=== PATIENT | female | born 1950 | race Caucasian/White ===

== ENCOUNTER 2017-01-21 00:07 | Emergency (ER) | payer OTHER ==
--- NOTE | 2017-01-21 02:14 | ED CLINICAL REPORT ---
Clinical Report - Physicians/Mid Levels [facility] [address] [place] [address] 01/21/2017 0:08 Patient: LEONEL CHRISTIAN Time Seen: 00:24; initial patient contact. Arrived- By private vehicle. Historian- patient. HISTORY OF PRESENT ILLNESS Chief Complaint: BACK PAIN. Onset- about 1 1/2 days ago and it is still present. It was gradual in onset and has been intermittent. Modifying factors- worsened by sitting, standing, walking, lying down, bending over, coughing or taking deep breaths. Not relieved by anything. It is described as being moderate in degree and in the area of the mid thoracic spine and lower thoracic spine. The quality is noted to be aching. No radiation. No bladder dysfunction, bowel dysfunction, sensory loss or motor loss. Patient denies an injury but injury to the head or chest. Similar symptoms previously: Many times. Recent medical care: Not recently seen/assessed. REVIEW OF SYSTEMS No abdominal pain, nausea, difficulty with urination, neck pain or numbness. No weakness. She has had diarrhea and back pain. No difficulty walking. All systems otherwise negative, except as recorded above. PAST HISTORY Osteoporosis. Spinal Fracture. Lumbar Strain. Espinoza's Palsy. ADDITIONAL SURGERIES: . Ear disorder screening. Knee Surgery. Medications: Cclcium Supplement. Vitamin D Oral (Capsule 1000 unit) 1 capsule, daily. Omeprazole Oral. TiZANidine HCl Oral. Ibuprofen Oral. Allergies: Hydrocodone. Definite Moderate(anxiety) ("makes her feel as though bugs are crawling on me"). SOCIAL HISTORY Never smoker. No alcohol use or drug use. ADDITIONAL NOTES The nursing notes have been reviewed. PHYSICAL EXAM Vital Signs: 01/21/2017 00:17 BP: 116/62. HR: 100. RR: 16. O2 saturation: 97%. Temp: 97.6 F. Pain level now: 8/10. Have been reviewed as normal. Appearance: Alert. No acute distress. CVS: Normal heart rate and rhythm. Heart sounds normal. Respiratory: No respiratory distress. Breath sounds normal. Chest nontender. Back: Mild soft tissue tenderness in the right mid and lower and left mid and lower thoracic area. Moderate muscle spasm present in the right mid and lower and left mid and lower thoracic area. No vertebral point tenderness. Neuro: Oriented X 3. Mood/affect normal. No motor deficit. PROGRESS AND PROCEDURES Course of Care: Diazepam 10 mg IM given. Physical exam findings are improved. Symptoms better. Disposition: Discharged home in good and improved condition. Condition: good. CLINICAL IMPRESSION Muscle strain of the mid back. INSTRUCTIONS Do not work today. Your Current Medications: STOP TAKING THE FOLLOWING MEDICATIONS: TiZANidine HCl Oral. CONTINUE TAKING THE FOLLOWING MEDICATIONS: Cclcium Supplement*. Ibuprofen Oral. Omeprazole Oral. Vitamin D Oral : Capsule 1000 unit, 1 capsule daily. Prescription Medications: Baclofen 10 mg: take 1 orally every 8 hours. Dispense thirty (30). No refills. Follow-up: Follow up with your doctor in about four days. Call for an appointment. Screening today revealed the patient's blood pressure to be in the normal range. (Electronically signed by Camacho Melgar Dr. 01/21/2017 2:15)
--- NOTE | 2017-01-21 02:14 | ED NURSING NOTES ---
Clinical Report - Nurses [facility] [address] [place] [address] 01/21/2017 0:08 [id number] Triage time 00:10 Jan 21 2017. Acuity: LEVEL 3. Chief Complaint: BACK PAIN. Alert. SHAHRAM COMA SCORE: [place] Coma Scale: 15- eyes open spontaneously (4); best verbal response- oriented x 4 (5); best motor response- obeys commands (6). Shahram Coma Scale: 15- eyes open spontaneously (4); best verbal response- oriented x 4 (5); best motor response- obeys commands (6). --00:41 Néstor Harris R.N. 00:17 01/21/17. BP: 116/62. HR: 100. RR: 16. O2 saturation: 97% on room air. Temp: 97.6 F (oral). Pain level now: 05/05. --00:41 Néstor Harris R.N. Weight: 68 kg stated. Height/Length: 67.5 inches Per Patient. BMI: 23.1. --00:18 Néstor Harris R.N. Medications Ibuprofen Oral. --00:25 Néstor Harris R.N. TiZANidine HCl Oral. --00:25 Néstor Harris R.N. Omeprazole Oral. --00:26 Néstor Harris R.N. Vitamin D Oral (Capsule 1000 unit) 1 capsule, daily. --00:30 Néstor Harris R.N. Cclcium Supplement. --00:30 Néstor Harris R.N. Allergies Hydrocodone. Definite Moderate(anxiety) ("makes her feel as though bugs are crawling on me") --00:24 Néstor Harris R.N. Medication/allergy information source: the patient. --00:41 Néstor Harris R.N. History Arrived by private vehicle. Historian: patient. Accompanied by family and daughter. Primary physician (Ambar Anaya,[place], [place]). ( Bilat Mid-back pain starting yesterday. Went to her clinic yesterday and was prescribed a muscle relaxer and Ibuprofen(neither of which has helped her pain).). This started yesterday. Onset. (about 40 hours ago). She has had moderate trouble walking (spasms when she walks). History of recent trauma- (7 days ago cracked a rib, but no back pain at that time). Occurred at home. 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 PAST MEDICAL HX: Tetanus status: unknown. Immunizations: status is unknown and has received pneumonia vaccine; has received tetanus within 10 years. The patient is post-menopausal. SOCIAL HX: Never smoker. No alcohol use or drug use. No infectious disease exposure. ABUSE ASSESSMENT: No report of abuse. FALL RISK ASSESSMENT: Fall risk assessment completed. No fall risk identified. NUTRITIONAL RISK ASSESSMENT: The nutritional risk assessment revealed no deficiencies. FUNCTIONAL ASSESSMENT: Functional assessment: no impairments noted. LEARNING NEEDS ASSESSMENT: The learning needs assessment revealed no barriers. SKIN INTEGRITY ASSESSMENT: Skin integrity risk assessment completed. No skin integrity risk identified. --00:41 Néstor Harris R.N. PROBLEMS: Osteoporosis. Spinal Fracture. Lumbar Strain. --00:27 Néstor Harris R.N. Espinoza's Palsy. --00:29 Néstor Harris R.N. ADDITIONAL SURGERIES: . --00:27 Néstor Harris R.N. Ear disorder screening. Knee Surgery. --00:29 Néstor Harris R.N. Interventions ID and allergy band on patient. To treatment room. --00:41 Néstor Harris R.N. PHYSICAL ASSESSMENT Ambulatory to room. GENERAL / NEURO / PSYCH: Alert. Oriented X 4. RESPIRATORY: Respirations not labored. Right mid- costochondral tenderness. Breath sounds within normal limits. GI / : Abdomen soft and nontender. EXTREMITIES: Sensation intact in extremities. ROM of extremities within normal limits. --00:42 Néstor Harris R.N. NURSING PROGRESS NOTES Patient gowned. Reassurance given. Patient identifiers checked. Side rails up x 1. Bed placed in lowest position. Brakes of bed on. Patient ready for evaluation- chart flagged and ED physician notified. --00:42 Néstor Harris R.N. 00:43 01/21/2017 Diazepam (Diazepam) IM 5 mg given. Given in the right ventral gluteus (split dose). Allergies verified, confirmed 5 rights and sedative warning given to the patient. --00:53 Néstor Harris R.N. 01:20 01/21/17. Patient ID band checked for patient name and birthdate: patient confirmed. Instructions provided to collect clean catch urine and patient verbalized understanding. Clean catch urine collected with return of yellow-colored clear urine; odor is normal; sample sent to lab for urinalysis and culture. Specimen labeled in the presence of the patient. --01:23 Néstor Harris R.N. 01:34 01/21/2017 Diazepam (Diazepam) IM 0.5 mg given. Given in the left ventral gluteus. Allergies verified, confirmed 5 rights and sedative warning given. --01:34 Néstor Harris R.N. DISPOSITION / DISCHARGE 02:40 01/21/17. Condition at departure: stable. The goals identified in the patient's plan of care were met. No learning barriers present. Discharge instructions provided and reviewed with the patient and family. Reviewed warnings (Do not drive while on sedative medications). Reviewed medication(s) side effects, precautions, dosing and course information. Prescription(s) given to the patient. Patient and family verbalized understanding. Written instructions provided in Ethiopian. ( Follow up with your PCP as scheduled next week. Ice or heat as tolerated. Rest. Increase your fluids. Return if symptoms worsen. Patient and family verbalized understanding and had no additional questions.). The patient was discharged by the physician. She was discharged home and accompanied by family. She left the Emergency Department ambulatory and via private vehicle. Family member driving. FALL RISK ASSESSMENT: Fall risk assessment completed. No fall risk identified. --04:56 Treva Kaba 02:40 01/21/17. BP: 105/50. HR: 80. RR: 20. O2 saturation: 94% on room air. Temp: deferred. Pain level now: 05/05. --04:56 Treva Kaba. Locked/Released at 01/21/2017 4:56 by Treva Kaba,
--- NOTE | 2017-01-21 02:14 | ED CLINICAL REPORT ---
Clinical Report - Physicians/Mid Levels [facility] [address] [place] [address] 01/21/2017 0:08 Patient: LEONEL CHRISTIAN Time Seen: 00:24; initial patient contact. Arrived- By private vehicle. Historian- patient. HISTORY OF PRESENT ILLNESS Chief Complaint: BACK PAIN. Onset- about 1 1/2 days ago and it is still present. It was gradual in onset and has been intermittent. Modifying factors- worsened by sitting, standing, walking, lying down, bending over, coughing or taking deep breaths. Not relieved by anything. It is described as being moderate in degree and in the area of the mid thoracic spine and lower thoracic spine. The quality is noted to be aching. No radiation. No bladder dysfunction, bowel dysfunction, sensory loss or motor loss. Patient denies an injury but injury to the head or chest. Similar symptoms previously: Many times. Recent medical care: Not recently seen/assessed. REVIEW OF SYSTEMS No abdominal pain, nausea, difficulty with urination, neck pain or numbness. No weakness. She has had diarrhea and back pain. No difficulty walking. All systems otherwise negative, except as recorded above. PAST HISTORY Osteoporosis. Spinal Fracture. Lumbar Strain. Espinoza's Palsy. ADDITIONAL SURGERIES: . Ear disorder screening. Knee Surgery. Medications: Cclcium Supplement. Vitamin D Oral (Capsule 1000 unit) 1 capsule, daily. Omeprazole Oral. TiZANidine HCl Oral. Ibuprofen Oral. Allergies: Hydrocodone. Definite Moderate(anxiety) ("makes her feel as though bugs are crawling on me"). SOCIAL HISTORY Never smoker. No alcohol use or drug use. ADDITIONAL NOTES The nursing notes have been reviewed. PHYSICAL EXAM Vital Signs: 01/21/2017 00:17 BP: 116/62. HR: 100. RR: 16. O2 saturation: 97%. Temp: 97.6 F. Pain level now: 8/10. Have been reviewed as normal. Appearance: Alert. No acute distress. CVS: Normal heart rate and rhythm. Heart sounds normal. Respiratory: No respiratory distress. Breath sounds normal. Chest nontender. Back: Mild soft tissue tenderness in the right mid and lower and left mid and lower thoracic area. Moderate muscle spasm present in the right mid and lower and left mid and lower thoracic area. No vertebral point tenderness. Neuro: Oriented X 3. Mood/affect normal. No motor deficit. PROGRESS AND PROCEDURES Course of Care: Diazepam 10 mg IM given. Physical exam findings are improved. Symptoms better. Disposition: Discharged home in good and improved condition. Condition: good. CLINICAL IMPRESSION Muscle strain of the mid back. INSTRUCTIONS Do not work today. Your Current Medications: STOP TAKING THE FOLLOWING MEDICATIONS: TiZANidine HCl Oral. CONTINUE TAKING THE FOLLOWING MEDICATIONS: Cclcium Supplement*. Ibuprofen Oral. Omeprazole Oral. Vitamin D Oral : Capsule 1000 unit, 1 capsule daily. Prescription Medications: Baclofen 10 mg: take 1 orally every 8 hours. Dispense thirty (30). No refills. Follow-up: Follow up with your doctor in about four days. Call for an appointment. Screening today revealed the patient's blood pressure to be in the normal range. (Electronically signed by Camacho Melgar Dr. 01/21/2017 2:15)
--- NOTE | 2017-01-21 02:14 | ED NURSING NOTES ---
Clinical Report - Nurses [facility] [address] [place] [address] 01/21/2017 0:08 [id number] Triage time 00:10 Jan 21 2017. Acuity: LEVEL 3. Chief Complaint: BACK PAIN. Alert. SHAHRAM COMA SCORE: [place] Coma Scale: 15- eyes open spontaneously (4); best verbal response- oriented x 4 (5); best motor response- obeys commands (6). Shahram Coma Scale: 15- eyes open spontaneously (4); best verbal response- oriented x 4 (5); best motor response- obeys commands (6). --00:41 Néstor Harris R.N. 00:17 01/21/17. BP: 116/62. HR: 100. RR: 16. O2 saturation: 97% on room air. Temp: 97.6 F (oral). Pain level now: 05/05. --00:41 Néstor Harris R.N. Weight: 68 kg stated. Height/Length: 67.5 inches Per Patient. BMI: 23.1. --00:18 Néstor Harris R.N. Medications Ibuprofen Oral. --00:25 Néstor Harris R.N. TiZANidine HCl Oral. --00:25 Néstor Harris R.N. Omeprazole Oral. --00:26 Néstor Harris R.N. Vitamin D Oral (Capsule 1000 unit) 1 capsule, daily. --00:30 Néstor Harris R.N. Cclcium Supplement. --00:30 Néstor Harris R.N. Allergies Hydrocodone. Definite Moderate(anxiety) ("makes her feel as though bugs are crawling on me") --00:24 Néstor Harris R.N. Medication/allergy information source: the patient. --00:41 Néstor Harris R.N. History Arrived by private vehicle. Historian: patient. Accompanied by family and daughter. Primary physician (Ambar Anaya,[place], [place]). ( Bilat Mid-back pain starting yesterday. Went to her clinic yesterday and was prescribed a muscle relaxer and Ibuprofen(neither of which has helped her pain).). This started yesterday. Onset. (about 40 hours ago). She has had moderate trouble walking (spasms when she walks). History of recent trauma- (7 days ago cracked a rib, but no back pain at that time). Occurred at home. 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 PAST MEDICAL HX: Tetanus status: unknown. Immunizations: status is unknown and has received pneumonia vaccine; has received tetanus within 10 years. The patient is post-menopausal. SOCIAL HX: Never smoker. No alcohol use or drug use. No infectious disease exposure. ABUSE ASSESSMENT: No report of abuse. FALL RISK ASSESSMENT: Fall risk assessment completed. No fall risk identified. NUTRITIONAL RISK ASSESSMENT: The nutritional risk assessment revealed no deficiencies. FUNCTIONAL ASSESSMENT: Functional assessment: no impairments noted. LEARNING NEEDS ASSESSMENT: The learning needs assessment revealed no barriers. SKIN INTEGRITY ASSESSMENT: Skin integrity risk assessment completed. No skin integrity risk identified. --00:41 Néstor Harris R.N. PROBLEMS: Osteoporosis. Spinal Fracture. Lumbar Strain. --00:27 Néstor Harris R.N. Espinoza's Palsy. --00:29 Néstor Harris R.N. ADDITIONAL SURGERIES: . --00:27 Néstor Harris R.N. Ear disorder screening. Knee Surgery. --00:29 Néstor Harris R.N. Interventions ID and allergy band on patient. To treatment room. --00:41 Néstor Harris R.N. PHYSICAL ASSESSMENT Ambulatory to room. GENERAL / NEURO / PSYCH: Alert. Oriented X 4. RESPIRATORY: Respirations not labored. Right mid- costochondral tenderness. Breath sounds within normal limits. GI / : Abdomen soft and nontender. EXTREMITIES: Sensation intact in extremities. ROM of extremities within normal limits. --00:42 Néstor Harris R.N. NURSING PROGRESS NOTES Patient gowned. Reassurance given. Patient identifiers checked. Side rails up x 1. Bed placed in lowest position. Brakes of bed on. Patient ready for evaluation- chart flagged and ED physician notified. --00:42 Néstor Harris R.N. 00:43 01/21/2017 Diazepam (Diazepam) IM 5 mg given. Given in the right ventral gluteus (split dose). Allergies verified, confirmed 5 rights and sedative warning given to the patient. --00:53 Néstor Harris R.N. 01:20 01/21/17. Patient ID band checked for patient name and birthdate: patient confirmed. Instructions provided to collect clean catch urine and patient verbalized understanding. Clean catch urine collected with return of yellow-colored clear urine; odor is normal; sample sent to lab for urinalysis and culture. Specimen labeled in the presence of the patient. --01:23 Néstor Harris R.N. 01:34 01/21/2017 Diazepam (Diazepam) IM 0.5 mg given. Given in the left ventral gluteus. Allergies verified, confirmed 5 rights and sedative warning given. --01:34 Néstor Harris R.N. DISPOSITION / DISCHARGE 02:40 01/21/17. Condition at departure: stable. The goals identified in the patient's plan of care were met. No learning barriers present. Discharge instructions provided and reviewed with the patient and family. Reviewed warnings (Do not drive while on sedative medications). Reviewed medication(s) side effects, precautions, dosing and course information. Prescription(s) given to the patient. Patient and family verbalized understanding. Written instructions provided in Belgian. ( Follow up with your PCP as scheduled next week. Ice or heat as tolerated. Rest. Increase your fluids. Return if symptoms worsen. Patient and family verbalized understanding and had no additional questions.). The patient was discharged by the physician. She was discharged home and accompanied by family. She left the Emergency Department ambulatory and via private vehicle. Family member driving. FALL RISK ASSESSMENT: Fall risk assessment completed. No fall risk identified. --04:56 Treva Kaba 02:40 01/21/17. BP: 105/50. HR: 80. RR: 20. O2 saturation: 94% on room air. Temp: deferred. Pain level now: 05/05. --04:56 Treva Kaba. Locked/Released at 01/21/2017 4:56 by Treva Kaba,
--- NOTE | 2017-01-21 02:14 | ED ORDER SUMMARY ---
..... Patient: LEONEL CHRISTIAN OrderSheet [facility] VisitID: [id number] [address] [place] [address] 66y, F Registration Date/Time: 01/21/2017 ORDER SHEET Weight: 68.0 kg (stated) Allergies: Hydrocodone GENERAL ORDERS: UA-Culture if indicated Urgent (01:22 01/21/2017 Viviane R.N. verbal order read back to Zulma Mclaughlin) (1:22 Viviane R.N.) MEDICATION ORDERS: Diazepam IM 5 mg (HIGH ALERT MEDICATION, NOW) (00:39 01/21/2017 Zulma Mclaughlin) (0:53 Viviane R.N.) Diazepam IM 5 mg (HIGH ALERT MEDICATION, NOW) (01:30 01/21/2017 Zulma Mclaughlin) (1:34 Viviane R.N.) IV FLUIDS: ORDER SHEET NOTES: [Electronically signed by Camacho Melgar Dr. (02:15 01/21/2017)] [Electronically signed by Treva Kaba (04:56 01/21/2017)] [Electronically locked/signed by Treva Kaba (04:56 01/21/2017)]
--- NOTE | 2017-01-21 02:14 | ED ORDER SUMMARY ---
..... Patient: LEONEL CHRISTIAN OrderSheet [facility] VisitID: [id number] [address] [place] [address] 66y, F Registration Date/Time: 01/21/2017 ORDER SHEET Weight: 68.0 kg (stated) Allergies: Hydrocodone GENERAL ORDERS: UA-Culture if indicated Urgent (01:22 01/21/2017 Viviane R.N. verbal order read back to Zulma Mclaughlin) (1:22 Viviane R.N.) MEDICATION ORDERS: Diazepam IM 5 mg (HIGH ALERT MEDICATION, NOW) (00:39 01/21/2017 Zulma Mclaughlin) (0:53 Viviane R.N.) Diazepam IM 5 mg (HIGH ALERT MEDICATION, NOW) (01:30 01/21/2017 Zulma Mclaughlin) (1:34 Viviane R.N.) IV FLUIDS: ORDER SHEET NOTES: [Electronically signed by Camacho Melgar Dr. (02:15 01/21/2017)] [Electronically signed by Treva Kaba (04:56 01/21/2017)] [Electronically locked/signed by Treva Kaba (04:56 01/21/2017)]
--- NOTE | 2017-01-21 04:56 | ED MED RECONCILIATION SUMMARY ---
Patient: LEONEL CHRISTIAN Medication Reconciliation Report [facility] VisitID: [id number] [address] [place] [address] 66y, F Registration Date/Time: 01/21/2017 Weight: 68.0 kg Height/Length: (not available) BMI: 23.1 ALLERGIES: Hydrocodone The patient's Home Medications are listed below: STOP TAKING THE FOLLOWING MEDICATIONS: TiZANidine HCl Oral CONTINUE TAKING THE FOLLOWING MEDICATIONS: Cclcium Supplement Ibuprofen Oral Omeprazole Oral Vitamin D Oral (1000 unit) 1 capsule, daily The source(s) of the original Home Medication information: patient The following Medications were given to the patient in the Emergency Department: Diazepam [IM] IM 5 mg, administered: 01/21/2017 12:43:00 AM Diazepam [IM] IM 0.5 mg, administered: 01/21/2017 1:34:00 AM The following Medications were prescribed to the patient: Baclofen 10 mg: take 1 orally every 8 hours. Dispense thirty (30). No refills. -- Camacho Melgar Dr.
--- NOTE | 2017-01-21 04:56 | ED MED RECONCILIATION SUMMARY ---
Patient: LEONEL CHRISTIAN Medication Reconciliation Report [facility] VisitID: [id number] [address] [place] [address] 66y, F Registration Date/Time: 01/21/2017 Weight: 68.0 kg Height/Length: (not available) BMI: 23.1 ALLERGIES: Hydrocodone The patient's Home Medications are listed below: STOP TAKING THE FOLLOWING MEDICATIONS: TiZANidine HCl Oral CONTINUE TAKING THE FOLLOWING MEDICATIONS: Cclcium Supplement Ibuprofen Oral Omeprazole Oral Vitamin D Oral (1000 unit) 1 capsule, daily The source(s) of the original Home Medication information: patient The following Medications were given to the patient in the Emergency Department: Diazepam [IM] IM 5 mg, administered: 01/21/2017 12:43:00 AM Diazepam [IM] IM 0.5 mg, administered: 01/21/2017 1:34:00 AM The following Medications were prescribed to the patient: Baclofen 10 mg: take 1 orally every 8 hours. Dispense thirty (30). No refills. -- Camacho Melgar Dr.
--- NOTE | 2017-01-21 04:56 | ED DISCHARGE INSTRUCTIONS ---
Patient: LEONEL CHRISTIAN General Instructions [facility] VisitID: [id number] [place] [address] 66y, F Registration Date/Time: 01/21/2017 Muscle strain of the mid back. INSTRUCTIONS Do not work today. Your Current Medications: STOP TAKING THE FOLLOWING MEDICATIONS: TiZANidine HCl Oral. CONTINUE TAKING THE FOLLOWING MEDICATIONS: Cclcium Supplement*. Ibuprofen Oral. Omeprazole Oral. Vitamin D Oral : Capsule 1000 unit, 1 capsule daily. Prescription Medications: Baclofen 10 mg: take 1 orally every 8 hours. Dispense thirty (30). No refills. Follow-up: Follow up with your doctor in about four days. Call for an appointment. Screening today revealed the patient's blood pressure to be in the normal range. ADDITIONAL INFORMATION Back Pain [Acute Or Chronic] Back pain is usually caused by an injury to the muscles or ligaments of the spine. Sometimes the disks that separate each bone in the spine may bulge and cause pain by pressing on a nearby nerve. Back pain may also appear after a sudden twisting/bending force (such as in a car accident), after a simple awkward movement, or lifting something heavy with poor body positioning. In either case, muscle spasm is often present and adds to the pain. Acute back pain usually gets better in one to two weeks. Back pain related to disk disease, arthritis in the spinal joints or spinal stenosis (narrowing of the spinal canal) can become chronic and last for months or years. Unless you had a physical injury (for example, a car accident or fall) X-rays are usually not ordered for the initial evaluation of back pain. If pain continues and does not respond to medical treatment, x-rays and other tests may be performed at a later time. Home Care: You may need to stay in bed the first few days. But, as soon as possible, begin sitting or walking to avoid problems with prolonged bed rest (muscle weakness, worsening back stiffness and pain, blood clots in the legs). When in bed, try to find a position of comfort. A firm mattress is best. Try lying flat on your back with pillows under your knees. You can also try lying on your side with your knees bent up towards your chest and a pillow between your knees. Avoid prolonged sitting. This puts more stress on the lower back than standing or walking. During the first two days after injury, apply an ICE PACK to the painful area for 20 minutes every 2-4 hours. This will reduce swelling and pain. HEAT (hot shower, hot bath or heating pad) works well for muscle spasm. You can start with ice, then switch to heat after two days. Some patients feel best alternating ice and heat treatments. Use the one method that feels the best to you. You may use acetaminophen (Tylenol) or ibuprofen (Motrin, Advil) to control pain, unless another pain medicine was prescribed. [NOTE: If you have chronic liver or kidney disease or ever had a stomach ulcer or GI bleeding, talk with your doctor before using these medicines.] Be aware of safe lifting methods and do not lift anything over 15 pounds until all the pain is gone. Follow Up with your doctor or this facility if your symptoms do not start to improve after one week. Physical therapy may be needed. [NOTE: If X-rays were taken, they will be reviewed by a radiologist. You will be notified of any new findings that may affect your care.] Get Prompt Medical Attention if any of the following occur: Pain becomes worse or spreads to your legs Weakness or numbness in one or both legs Loss of bowel or bladder control Numbness in the groin or genital area You have been given the following additional information: Back Pain (Acute Or Chronic) Do not work today. (Electronically signed by Camacho Melgar Dr. 01/21/2017 2:15)
--- NOTE | 2017-01-21 04:56 | ED MAR SUMMARY ---
..... Medication Administration Record [facility] [address] [place] [address] Patient: LEONEL CHRISTIAN Visit ID: [id number] 66y, F Weight: 68.0 kg Height/Length: 67.5 in BMI: 23.1 ALLERGIES: Hydrocodone Given 00:43 01/21/2017 Néstor Harris RAnupN. Medication Administered: DIAZEPAM [IM] (DIAZEPAM), Dose: 5 mg IM. Medication Ordered: Diazepam IM 5 mg (HIGH ALERT MEDICATION, NOW). Given 01:34 01/21/2017 Néstor Harris RAnupN. Medication Administered: DIAZEPAM [IM] (DIAZEPAM), Dose: 0.5 mg IM. Medication Ordered: Diazepam IM 5 mg (HIGH ALERT MEDICATION, NOW).
--- NOTE | 2017-01-21 04:56 | ED MAR SUMMARY ---
..... Medication Administration Record [facility] [address] [place] [address] Patient: LEONEL CHRISTIAN Visit ID: [id number] 66y, F Weight: 68.0 kg Height/Length: 67.5 in BMI: 23.1 ALLERGIES: Hydrocodone Given 00:43 01/21/2017 Néstor Harris RAnupN. Medication Administered: DIAZEPAM [IM] (DIAZEPAM), Dose: 5 mg IM. Medication Ordered: Diazepam IM 5 mg (HIGH ALERT MEDICATION, NOW). Given 01:34 01/21/2017 Néstor Harris RAnupN. Medication Administered: DIAZEPAM [IM] (DIAZEPAM), Dose: 0.5 mg IM. Medication Ordered: Diazepam IM 5 mg (HIGH ALERT MEDICATION, NOW).
== END 2017-01-21 04:56 | disposition home or self-care (01) ==
LOC: ED SRH 00:07
DX: S29.012A Strain of muscle and tendon of back wall of thorax, initial encounter (principal); M62.830 Muscle spasm of back; X58.XXXA Exposure to other specified factors, initial encounter; Y93.9 Activity, unspecified; Y99.9 Unspecified external cause status; Y92.9 Unspecified place or not applicable; Z79.899 Other long term (current) drug therapy; Z79.1 Long term (current) use of non-steroidal anti-inflammatories (NSAID); Z88.5 Allergy status to narcotic agent
CPT/HCPCS: 90004; 90469